=== PATIENT | female | born 1955 | race Caucasian/White ===

== ENCOUNTER 2017-01-14 09:21 | Emergency (ER) | payer OTHER | END 2017-01-14 09:48 | disposition home or self-care (01) | LOC: FER 09:21 | DX: J02.0 Streptococcal pharyngitis (principal); E11.9 Type 2 diabetes mellitus without complications; I10 Essential (primary) hypertension; Z88.5 Allergy status to narcotic agent; Z79.84 Long term (current) use of oral hypoglycemic drugs; Z79.899 Other long term (current) drug therapy | CPT/HCPCS: 99282 ==

== ENCOUNTER 2021-05-20 23:05 | Emergency (ER) | payer OTHER ==
[~2021-05-20 23:05] MED LIST: ANASTROZOLE1 M1 PO; CALCIUM 600 +1 EA11 PO; CELECOXIB200 MG PO; CITALOPRAM HBR10 MG PO; FLEXERIL10 MG PO; HCTZ25 MG PO; IBUPROFEN800 MG PO; JANUVIA 100MG100 MG PO; K-DUR20 MEQ PO; LIPITOR 10MG TA10 MG PO; LISINOPRIL-HCT1 EAC2 PO; XIGDUO XR 10 M1 EACH PO
[2021-05-21 00:24] LABS: BASOPHIL 0.4 % (0-2); EOSINOPHIL 1.4 % (0-5); HCT 43.5 % (37.0-47.0); HGB 14.5 g/dl (12.5-16.0); LYMPHOCYTE 22.1 % (15-48); MCH 31.1 pg (25.0-31.0); MCHC 33.3 g/dL (32.0-36.0); MCV 93.3 fL (78.0-100.0); MONOCYTE 5.8 % (0-12); MPV 9.5 fL (6.0-9.5); NEUTROPHIL 69.9 % (41-80); NRBC 0; PLT 281 K/uL (150-400); RBC 4.66 M/uL (4.20-5.40); RDW 12.5 % (11.5-14.0)
[2021-05-21 00:58] LABS: ALBUMIN 3.3 g/dL (3.4-5.0); BILIRUBIN - TOTAL 0.4 mg/dL (0.2-1.0); BUN/CREAT RATIO (CALC) 18.4 RATIO; CREATININE 1.14 mg/dL (0.51-0.95); GLOBULIN (CALCULATION) 4.2 g/dL; POTASSIUM 2.9 mmol/L (3.5-5.1); TOTAL PROTEIN 7.5 g/dL (6.4-8.2)
[2021-05-21] MEDS ORDERED: DICLOFENAC SODI75 MG PO (01:16)
[2021-05-21] MEDS ORDERED: K-DUR20 MEQ PO (01:16)
== END 2021-05-21 01:25 | disposition home or self-care (01) ==
LOC: FER 23:05
PROVIDERS: Emergency Medicine
DX: R07.89 Other chest pain (principal); E87.6 Hypokalemia; E11.9 Type 2 diabetes mellitus without complications; I10 Essential (primary) hypertension; K21.9 Gastro-esophageal reflux disease without esophagitis; E78.5 Hyperlipidemia, unspecified; Z90.49 Acquired absence of other specified parts of digestive tract; Z98.890 Other specified postprocedural states; Z88.5 Allergy status to narcotic agent; Z79.899 Other long term (current) drug therapy
CPT/HCPCS: 36415; 71046; 80053; 82150; 83690; 85025; J1885

== ENCOUNTER 2021-09-15 21:39 | Emergency (ER) | payer OTHER ==
[~2021-09-15 21:39] MED LIST changes: +DICLOFENAC SODI75 MG PO
[2021-09-15 23:20] LABS: BASOPHIL 0.2 % (0-2); EOSINOPHIL 0.1 % (0-7); HCT 45.2 % (37.0-47.0); HGB 15.4 g/dl (12.5-16.0); MCH 30.8 pg (25.0-31.0); MCHC 34.1 g/dL (32.0-36.0); MCV 90.4 fL (78.0-100.0); MONOCYTE 9.2 % (0-12); MPV 9.9 fL (6.0-9.5); NEUTROPHIL 76.1 % (41-80); NRBC 0; PLT 220 K/uL (150-400); RDW 12.6 % (11.5-14.0); WBC 9.4 K/uL (4.0-10.5)
[2021-09-15 23:37] LABS: BUN/CREAT RATIO (CALC) 23.9 RATIO; CREATININE 1.17 mg/dL (0.51-0.95); POTASSIUM 4.3 mmol/L (3.5-5.1)
== END 2021-09-16 03:52 | disposition home or self-care (01) ==
LOC: FER 21:39
PROVIDERS: Nurse Practitioner Family
DX: U07.1 COVID-19 (principal); N17.9 Acute kidney failure, unspecified; I10 Essential (primary) hypertension; E11.9 Type 2 diabetes mellitus without complications; Z23 Encounter for immunization; Z88.5 Allergy status to narcotic agent; Z79.899 Other long term (current) drug therapy
CPT/HCPCS: 36415; 71045; 71275; 80048; 85025; 85379; J1100; J1885; J2405; J7030; M0245; Q0245; Q9967; U0002

== ENCOUNTER 2022-04-27 09:37 | Emergency (ER) | payer OTHER ==
[2022-04-27] MEDS ORDERED: LIDOCAINE 5% P1 EACH TOP (12:25)
[2022-04-27] MEDS ORDERED: NORCO 5-325 TA1 EACH PO (12:25)
== END 2022-04-27 12:40 | disposition home or self-care (01) ==
LOC: FER 09:37
DX: S22.32XA Fracture of one rib, left side, initial encounter for closed fracture (principal); E11.9 Type 2 diabetes mellitus without complications; I10 Essential (primary) hypertension; Z28.310 Unvaccinated for COVID-19; Z87.891 Personal history of nicotine dependence; Z88.5 Allergy status to narcotic agent; W01.0XXA Fall on same level from slipping, tripping and stumbling without subsequent striking against object, initial encounter; Y92.008 Other place in unspecified non-institutional (private) residence as the place of occurrence of the external cause
CPT/HCPCS: 71250